=== PATIENT | male | born 1980 | race Caucasian/White ===

== ENCOUNTER 2017-05-18 18:01 | Emergency (ER) | payer SELFPAY | END 2017-05-18 18:55 | disposition home or self-care (01) | LOC: D.ER 18:01 | DX: T14.8 Other injury of unspecified body region (principal); T63.481A Toxic effect of venom of other arthropod, accidental (unintentional), initial encounter; E11.9 Type 2 diabetes mellitus without complications; I10 Essential (primary) hypertension; F17.200 Nicotine dependence, unspecified, uncomplicated ==

== ENCOUNTER 2017-05-29 16:34 | Emergency (ER) | payer MEDICAID ==
[2017-05-29 18:23] LABS: BASOPHILS 0.3 % (0-2); EOSINOPHILS 1.2 % (0-7); HEMATOCRIT 47.8 % (42.0-54.0); HEMOGLOBIN 16.2 g/dL (13.5-17.5); IMMATURE GRANULOCYTES 0.3 % (0-5); LYMPHOCYTES 31.7 % (15-50); MCH 29.8 pg (26.0-34.0); MCHC 33.9 g/dL (31.0-37.0); MEAN PLATELET VOLUME 9.4 fL (7.4-10.4); MONOCYTES 8.5 % (2-11); PLATELET COUNT 305 10x3/uL (130-400); RBC 5.43 10x6/uL (4.20-6.10); RDW 12.8 % (11.5-14.5); WBC 11.8 10x3/uL (4.8-10.8)
[2017-05-29 18:27] LABS: APPEARANCE CLEAR (CLEAR); BILIRUBIN NEGATIVE (NEGATIVE); COLOR YELLOW (YELLOW); GLUCOSE 100 mg/dL (NEGATIVE); KETONE NEGATIVE (NEGATIVE); LEUKOCYTE ESTERASE NEGATIVE (NEGATIVE); NITRITE NEGATIVE (NEGATIVE); PROTEIN NEGATIVE (NEGATIVE); UROBILINOGEN NORMAL (NORMAL)
[2017-05-29 18:44] LABS: ALBUMIN 3.7 g/dL (3.4-5.0); ALKALINE PHOSPHATASE 52 U/L (46-116); ALT (SGPT) 32 U/L (10-68); AMYLASE - SERUM 66 U/L (25-115); BILIRUBIN - TOTAL 0.41 mg/dL (0.2-1.3); CALC OSMOLALITY 281 mosm/kg (275-300); CALCIUM 9.2 mg/dL (8.5-10.1); CARBON DIOXIDE 30.5 mmol/L (21.0-32.0); CHLORIDE - SERUM 100 mmol/L (98-107); CREATININE - SERUM 0.8 mg/dL (0.6-1.3); GLUCOSE 198 mg/dL (74-106); LIPASE 272 U/L (73-393); POTASSIUM - SERUM 4.3 mmol/L (3.5-5.1); SODIUM 138 mmol/L (136-145); UREA NITROGEN 13 mg/dL (7-18); eGFR NON AFRICAN AMERICAN > 90 mL/min (90-120)
== END 2017-05-29 19:44 | disposition home or self-care (01) ==
LOC: D.ER 16:34
PROVIDERS: Nurse Practitioner Family
DX: K52.9 Noninfective gastroenteritis and colitis, unspecified (principal); E86.0 Dehydration; R11.10 Vomiting, unspecified; E11.9 Type 2 diabetes mellitus without complications; I10 Essential (primary) hypertension; K58.9 Irritable bowel syndrome, unspecified; R10.9 Unspecified abdominal pain; R11.2 Nausea with vomiting, unspecified; M79.1 Myalgia

== ENCOUNTER 2017-08-18 21:07 | Emergency (ER) | payer MEDICARE | END 2017-08-18 23:00 | disposition home or self-care (01) | LOC: D.ER 21:07 | DX: S16.1XXA Strain of muscle, fascia and tendon at neck level, initial encounter (principal); X58.XXXA Exposure to other specified factors, initial encounter; Y93.89 Activity, other specified; Y92.029 Unspecified place in mobile home as the place of occurrence of the external cause; M62.838 Other muscle spasm; I10 Essential (primary) hypertension; F17.200 Nicotine dependence, unspecified, uncomplicated ==

== ENCOUNTER 2017-12-07 15:03 | Emergency (ER) | payer MEDICAID | END 2017-12-07 19:59 | disposition home or self-care (01) | LOC: D.ER 15:03 | DX: R19.7 Diarrhea, unspecified (principal); J11.1 Influenza due to unidentified influenza virus with other respiratory manifestations; I10 Essential (primary) hypertension ==

== ENCOUNTER 2018-02-02 16:02 | Emergency (ER) | payer MEDICAID | END 2018-02-02 17:15 | disposition home or self-care (01) | LOC: D.ER 16:02 | DX: T50.905A Adverse effect of unspecified drugs, medicaments and biological substances, initial encounter (principal); Y92.019 Unspecified place in single-family (private) house as the place of occurrence of the external cause; I10 Essential (primary) hypertension; E11.9 Type 2 diabetes mellitus without complications ==

== ENCOUNTER 2019-07-25 08:16 | Emergency (ER) | payer SELFPAY ==
[~2019-07-25] VITALS: Ht 175.3 cm; Wt 90.9 kg
[2019-07-25 08:21] VITALS: Ht 175.3 cm; Wt 90.9 kg
[2019-07-25] MEDS ORDERED: [UNRECOGNIZED DRUG - OTHER] (08:23)
[2019-07-25] MEDS ORDERED: ZOLOFT100 MG PO (08:24)
[2019-07-25] MEDS ORDERED: [UNRECOGNIZED DRUG - OTHER] (08:25)
[2019-07-25 09:26] LABS: BASOPHILS 0.1 % (0-2); EOSINOPHILS 1.1 % (0-7); HEMATOCRIT 45.2 % (42.0-54.0); HEMOGLOBIN 15.1 g/dL (13.5-17.5); IMMATURE GRANULOCYTES 0.2 % (0-5); LYMPHOCYTES 26.9 % (15-50); MCH 29.4 pg (26.0-34.0); MCHC 33.4 g/dL (31.0-37.0); MCV 88.1 fL (80.0-100.0); MEAN PLATELET VOLUME 8.9 fL (7.4-10.4); MONOCYTES 6.9 % (2-11); NEUTROPHILS 64.8 % (40-80); PLATELET COUNT 253 10x3/uL (130-400); RBC 5.13 10x6/uL (4.20-6.10); RDW 13.4 % (11.5-14.5); WBC 9.2 10x3/uL (4.8-10.8)
[2019-07-25 09:45] LABS: ALBUMIN 3.9 g/dL (3.4-5.0); ALKALINE PHOSPHATASE 54 U/L (46-116); ALT (SGPT) 62 U/L (10-68); BILIRUBIN - TOTAL 0.39 mg/dL (0.2-1.3); CHLORIDE - SERUM 99 mmol/L (98-107); CREATINE KINASE 138 UL (21-232); CREATININE - SERUM 0.8 mg/dL (0.6-1.3); MAGNESIUM - SERUM 1.8 mg/dL (1.8-2.4); POTASSIUM - SERUM 4.3 mmol/L (3.5-5.1); PROTEIN - SERUM 7.6 g/dL (6.4-8.2); SODIUM 137 mmol/L (136-145); UREA NITROGEN 13 mg/dL (7-18); eGFR NON AFRICAN AMERICAN > 90 mL/min (90-120)
[2019-07-25 09:48] LABS: CALC OSMOLALITY 281 mosm/kg (275-300); GLUCOSE 247 mg/dL (74-106); TROPONIN-I < 0.017 ng/mL (0.000-0.060)
[2019-07-25] MEDS ORDERED: VOLTAREN75 MG PO (11:29)
[2019-07-25 12:04] VITALS: BP 124/73
== END 2019-07-25 13:35 | disposition home or self-care (01) ==
LOC: D.ER 08:16
PROVIDERS: Emergency Medicine
DX: R07.9 Chest pain, unspecified (principal)

== ENCOUNTER 2019-07-28 11:38 | Emergency (ER) | payer SELFPAY ==
[~2019-07-28] VITALS: Ht 175.3 cm; Wt 90.9 kg
[~2019-07-28 11:38] MED LIST: VOLTAREN75 MG PO; ZOLOFT100 MG PO; [UNRECOGNIZED DRUG - OTHER]; [UNRECOGNIZED DRUG - OTHER]
[2019-07-28 11:41] VITALS: Ht 175.3 cm; Wt 90.9 kg
[2019-07-28] MEDS ORDERED: XIGDUO XR 5 MG1 EAC1 (11:46)
[2019-07-28] MEDS ORDERED: B COMPLEX (11:47)
[2019-07-28] MEDS ORDERED: BACLOFEN20 M1 PO (15:26)
[2019-07-28] MEDS ORDERED: PREDNISONE20 MG PO (15:26)
[2019-07-28 15:56] VITALS: BP 122/84
== END 2019-07-28 16:00 | disposition home or self-care (01) ==
LOC: D.ER 11:38
DX: M54.2 Cervicalgia (principal)

== ENCOUNTER 2019-08-19 02:29 | Emergency (ER) | payer SELFPAY ==
[~2019-08-19] VITALS: Ht 175.3 cm; Wt 90.9 kg
[~2019-08-19 02:29] MED LIST changes: +B COMPLEX; +BACLOFEN20 M1 PO; +PREDNISONE20 MG PO; +XIGDUO XR 5 MG1 EAC1
[2019-08-19 02:34] VITALS: Ht 175.3 cm; Wt 90.9 kg
[2019-08-19] MEDS ORDERED: ASCORBIC ACID500 MG PO (02:36)
[2019-08-19] MEDS ORDERED: PROMETHAZINE DM (02:36)
[2019-08-19] MEDS ORDERED: AMOXICILLIN500 M1 PO (02:37)
[2019-08-19] MEDS ORDERED: ECHINACEA PO (02:37)
[2019-08-19] MEDS ORDERED: XIGDUO XR 5 MG1 EAC1 (02:38)
[2019-08-19 03:05] LABS: BASOPHILS 0.2 % (0-2); EOSINOPHILS 1.6 % (0-7); HEMATOCRIT 48.8 % (42.0-54.0); HEMOGLOBIN 16.5 g/dL (13.5-17.5); IMMATURE GRANULOCYTES 0.4 % (0-5); LYMPHOCYTES 30.1 % (15-50); MCH 29.8 pg (26.0-34.0); MCHC 33.8 g/dL (31.0-37.0); MCV 88.2 fL (80.0-100.0); MEAN PLATELET VOLUME 9.3 fL (7.4-10.4); MONOCYTES 9.2 % (2-11); NEUTROPHILS 58.5 % (40-80); PLATELET COUNT 277 10x3/uL (130-400); RBC 5.53 10x6/uL (4.20-6.10); RDW 13.3 % (11.5-14.5); WBC 12.5 10x3/uL (4.8-10.8)
[2019-08-19 03:07] LABS: CALC OSMOLALITY 281 mosm/kg (275-300); CALCIUM 9.8 mg/dL (8.5-10.1); CARBON DIOXIDE 26.4 mmol/L (21.0-32.0); CHLORIDE - SERUM 99 mmol/L (98-107); CREATININE - SERUM 0.8 mg/dL (0.6-1.3); GLUCOSE 270 mg/dL (74-106); POTASSIUM - SERUM 3.9 mmol/L (3.5-5.1); SODIUM 135 mmol/L (136-145); UREA NITROGEN 18 mg/dL (7-18); eGFR NON AFRICAN AMERICAN > 90 mL/min (90-120)
[2019-08-19 03:21] LABS: APTT 44.9 SECONDS (22.8-39.4); PROTIME 12.7 SECONDS (11.6-15.0)
[2019-08-19 03:22] LABS: D-DIMER-QUANTITATIVE < 0.27 ug/mLFEU (0.20-0.54)
[2019-08-19 03:24] LABS: ALBUMIN 3.9 g/dL (3.4-5.0); ALKALINE PHOSPHATASE 72 U/L (46-116); ALT (SGPT) 44 U/L (10-68); BILIRUBIN - TOTAL 0.33 mg/dL (0.2-1.3); CKMB 0.4 U/L (0.0-3.6); CREATINE KINASE 96 UL (21-232); PROTEIN - SERUM 8.7 g/dL (6.4-8.2); TROPONIN-I < 0.017 ng/mL (0.000-0.060)
[2019-08-19 03:28] LABS: PRO BNP 9 pg/mL (0-125)
[2019-08-19] MEDS ORDERED: MEDROL DOSE PACK4 MG PO (03:36)
[2019-08-19] MEDS ORDERED: ZPAK PO (03:36)
[2019-08-19] MEDS ORDERED: ALBUTEROL SULF8.5 GM INH (03:37)
[2019-08-19 04:24] VITALS: BP 127/89
== END 2019-08-19 04:24 | disposition home or self-care (01) ==
LOC: D.ER 02:29
PROVIDERS: Family Medicine
DX: J20.9 Acute bronchitis, unspecified (principal)